=== PATIENT | female | born 1940 | race Hispanic/Latino ===

== ENCOUNTER 2022-04-28 06:20 | Day surgery (SDC) | payer MEDICARE ==
[2022-04-28] MEDS ORDERED: ASPIRIN EC 325 MG TAB PO NR (06:53)
[2022-04-28] MEDS ORDERED: SODIUM CHLORIDE 0.9% 500 ML 500 ML IV SCH (07:00)
[2022-04-28 07:13] LABS: Basophils # (Auto) 0.1 K/mm3 (0.0-0.1); Basophils % (Auto) 1.5 % (0.0-1.8); Eosinophils % (Auto) 0.3 % (0.0-4.3); Hematocrit 41.3 % (30.3-42.9); Hemoglobin 13.8 gm/dl (10.1-14.3); Lymphocytes # (Auto) 1.8 K/mm3 (1.2-5.4); Lymphocytes % (Auto) 31.7 % (13.4-35.0); Mean Corpuscular HGB Conc 33 % (30-34); Mean Corpuscular Volume 88 fl (79-97); Monocytes # (Auto) 0.6 K/mm3 (0.0-0.8); Monocytes % (Auto) 10.6 % (0.0-7.3); Platelet Count 203 K/mm3 (140-440); Red Blood Count 4.72 M/mm3 (3.65-5.03); Red Cell Distribution Width 14.5 % (13.2-15.2)
[2022-04-28 07:22] LABS: INR 0.92 (0.87-1.13); Partial Thromboplastin Time 28.8 Sec. (24.2-36.6)
[2022-04-28 07:23] LABS: Blood Urea Nitrogen 18 mg/dL (7-17); Calcium 9.8 mg/dL (8.4-10.2); Hemolysis Index 73
[2022-04-28 07:44] LABS: BUN/Creatinine Ratio 26
[2022-04-28] MEDS ORDERED: NITROGLYCERIN SYRINGE 0 ML ONE (08:04)
[2022-04-28] MEDS: fentaNYL 100 MCG/2 ML INJ ONE ×2 (08:41→08:49)
[2022-04-28] MEDS: VERAPAMIL 5 MG/2 ML INJ ONE ×2 (08:42→08:58)
[2022-04-28] MEDS: LIDOCAINE (1%) 10 MG/1 ML VIAL 20 ML MDV ONE ×2 (08:42→08:55)
[2022-04-28] MEDS: MIDAZOLAM 2 MG/2 ML INJ ONE ×2 (08:42→08:50)
[2022-04-28] MEDS: HEPARIN 10,000 UNITS/10 ML VIAL ONE ×3 (08:43→09:08)
[2022-04-28] MEDS: HEPARIN/NS 5000 UNIT/500ML 1,000 ML IR ONE ×2 (08:43→08:55)
[2022-04-28] MEDS: SODIUM CHLORIDE 0.9% 500 ML 500 ML ONE ×2 (08:43→08:45)
[2022-04-28] MEDS ORDERED: HYDROcodone/ACETAMINOPHEN 5-325 MG TAB PO PRN (11:00)
[2022-04-28] MEDS ORDERED: traMADol 50 MG TAB PO PRN (11:00)
--- NOTE | 2022-04-28 13:29 | Short Stay Summary ---
Short Stay Documentation Date of service: 04/28/22 - History H&P: obtained from office - Allergies and Medications Current Medications: Allergies No Known Allergies Allergy (Unverified 04/28/22 06:52) Home Medications Medication Instructions Recorded Confirmed Last Taken Type ALPRAZolam [Xanax TAB] 0.5 mg PO BID 04/28/22 04/28/22 04/27/22 History 0.5mg Apixaban [Eliquis] 2.5 mg PO BID 04/28/22 04/28/22 04/25/22 History 2.5mg Irbesartan [Avapro] 75 mg PO DAILY 04/28/22 04/28/22 04/27/22 History 75 mg Lactulose 15 ml PO DAILY 04/28/22 04/28/22 04/27/22 History 15 ml Propafenone HCl [Propafenone HCl 225 mg PO BID 04/28/22 04/28/22 04/27/22 History ER] 225 mg Active Medications Hydrocodone Bitart/Acetaminophen (Hydrocodone/Acetaminophen 5-325 Mg Tab) 1 e ach PO Q4H PRN PRN Reason: Pain, Moderate (4-6) Sodium Chloride (Nacl 0.9% 500 Ml) 500 mls @ 50 mls/hr IV DIRECT ARCHIE Stop: 04/28/22 16:59 Last Admin: 04/28/22 08:20 Dose: 50 mls/hr Tramadol HCl (Tramadol 50 Mg Tab) 50 mg PO Q4H PRN PRN Reason: Pain, Mild (1-3) - Physical exam Integumentary: other (Dressing clean dry and intact with no signs of bleeding or hematoma) - Brief post op/procedure progress note Date of procedure: 04/28/22 Pre-op diagnosis: Cardiomyopathy Post-op diagnosis: same Procedure: Cardiac cath Anesthesia: local Estimated blood loss: minimal - Hospital course Hospital course: Patient presents today for cardiac cath. Patient tolerated procedure well with no complications. See cath report for full details. Patient to be discharged home and follow-up in the office as an outpatient. - Disposition Condition at discharge: Good Disposition: 01 HOME / SELF CARE / HOMELESS - Discharge Diagnoses (1) Cardiomyopathy Status: Acute (2) Hypertension Status: Acute Short Stay Discharge Plan Activity: advance as tolerated Diet: low fat, low cholesterol, low salt Wound: keep clean and dry, per your surgeon's advice Follow up with: LAURITA WITT MD [Primary Care Provider] - 7 Days BECK CHOW MD [Staff Physician] - 7 Days Forms: CardCath PCI D/C Instructions
[2022-04-28 14:10] VITALS: BP 171/85
--- NOTE | 2022-04-28 17:35 | Cardiac Catherization Report ---
DATE OF SERVICE: 04/28/2022 CARDIAC CATHETERIZATION AND CORONARY ANGIOGRAPHY REPORT INDICATIONS: The patient is an 82-year-old white female who used to live in [place], moved to this area with a history of longstanding essential hypertension and paroxysmal atrial fibrillation, on propafenone, was noted to have mild LV dysfunction, ejection fraction of 40% on echocardiogram with no evidence of ischemia on the nuclear imaging. However, because of low ejection fraction, she was scheduled for diagnostic cardiac catheterization to rule out any significant coronary artery disease. The patient's main complaint is feeling tired, mostly at rest and with no complaints of chest pain with her usual activities. However, she does get short of breath. The patient was explained of the procedure, potential complications, and alternatives of therapy available. The patient's Eliquis was held for the last 3 days. The patient is willing to proceed with coronary angiography. DESCRIPTION OF PROCEDURE: The patient was evaluated for moderate sedation and received 1 mg of Versed and 25 mg of fentanyl starting at 8:50 a.m. Subsequently, local anesthesia was given in the right wrist area and right radial artery puncture was made using 21-gauge arterial puncture needle. Using 5-Czech multipurpose catheter, angiograms of the left coronary artery, right coronary artery were obtained in multiple views, also left ventriculogram was performed in HUTSON projection using hand injection. The patient received 3000 units of intravenous heparin and 5 mg of intra-arterial verapamil after obtaining the arterial access. Following findings were noted. Aortic pressure 190/80. Left ventricular pressure 190/11. No gradient across the aortic valve. Estimated ejection fraction of 40-45%. Left ventriculogram done in HUTSON projection showed left ventricular size to be upper limits of normal with mild diffuse hypokinesis. Mitral regurgitation could not be evaluated because of limited amount of dye injected. Overall, left ventricular ejection fraction was felt to be mildly impaired in the range of 40-45%. End-diastolic pressure was measured to be 11, which is within normal limits. Coronary arteries showed diffuse calcifications, particularly around the entire dominant RCA and also in the left main and proximal LAD areas. Left coronary artery arises normally from left coronary cusp. The left main shows very smooth 30% lesion distally. Circumflex artery nondominant vessel, shows a smooth long 50% proximal segment. The rest of circumflex without significant disease. Left anterior descending artery, which curves around the apex is very tortuous. It gives rise to 2 medium sized diagonal branches proximally. First diagonal branch shows a long proximal lesion, approaching 50-60% with a very focal 75% lesion close to the ostium. Also in the mid diagonal area, there is an 80% focal area of stenosis. Second diagonal branch shows diffuse disease in the proximal one-third approaching 60-70%. This is a medium-sized vessel. LAD itself is very tortuous, particularly in the mid part. In the mid LAD, there is a 50-60% smooth lesion; however, this is in the region of two 90-degree angles. Rest of the distal LAD without significant disease. Proximal LAD shows mild diffuse disease. Right coronary artery shows an entire artery to be showing diffuse calcification. However, only mild luminal irregularities noted. Approaching 20-30%. This is a very large, dominant vessel. COLLATERALS: None. iFR measurement of mid LAD lesion: Considering borderline lesion in mid LAD,it was felt,it would be helpful to measure iFR of this lesion.Extra dose of heparin was given.5F MP diagnostic catheter was used to engage LCA.Pressure wire was set up in standard fashion.Attempt was made to cross mid LAD lesion multiple times with pressure wire.However,difficult to direct wire into distal LAD,entering side branch.This is because of two 90% angles around lesions.Considering difficulty with wiring,procedure was aborted and final angiograms did not show any complications from wire manipulation. FINAL IMPRESSION: Mild left ventricular dysfunction, borderline 50-60% distal mid left anterior descending lesion along with significant disease in 2 diagonal branches proximally. Considering the above angiographic anatomy and the patient is not having any anginal symptoms with a negative Lexiscan nuclear imaging, it was felt that the patient can be continued on aggressive risk factor modification and medical therapy. The patient is in sinus rhythm. We will restart her on Eliquis. Intervention of the above lesions can be attempted; however, technically going to be challenging, particularly proximal diagonal branch, which has ostial lesion in addition to mid lesion. Also, second diagonal branch, medium sized vessel has diffuse moderate disease. Findings were explained to the patient, she is agreeable with the plan. Procedure was uncomplicated. The patient's moderate sedation started at 8:50 a.m. and ended at 9:16 a.m. At the end of the procedure, the patient is communicating normally with no focal deficits. The patient will be monitored for next 3-4 hours and will be discharged home on present medical therapy. She will be restarted on Eliquis. TID: [id number] RECEIPT: [id number] BAUTISTA/CHELSI/NEHEMIAS/NARGIS MOJICA
--- NOTE | 2022-04-29 17:45 | Electrocardiograph Report ---
[facility] Test Date: 2022-04-28 Test Time: 07:55:06 Pat Name: DEREK MONTERO Department: Room: Gender: F Room Service Waiter/Waitress: JHONATHAN : 1940 Requested By: MIGUELINA DUVAL Order Number: [id number] Reading MD: Rubén Werner Measurements Intervals [place] Rate: 83 P: 14 WA: 142 QRS: -48 QRSD: 118 T: 50 QT: 389 QTc: 457 Interpretive Statements Sinus arrhythmia Left anterior fascicular block Left ventricular hypertrophy Anterior Q waves, possibly due to LVH No previous ECG available for comparison Electronically Signed On 04-29-2022 17:45:33 EDT by Rubén Werner
== END 2022-04-28 15:37 | disposition home or self-care (01) ==
LOC: CATHLABREC 06:20
PROVIDERS: ATTEND Internal Medicine
DX: I48.0 Paroxysmal atrial fibrillation (principal); I10 Essential (primary) hypertension; I42.0 Dilated cardiomyopathy; R06.09 Other forms of dyspnea; K21.9 Gastro-esophageal reflux disease without esophagitis; M19.90 Unspecified osteoarthritis, unspecified site; F41.9 Anxiety disorder, unspecified; Z79.899 Other long term (current) drug therapy; Z98.890 Other specified postprocedural states
CPT/HCPCS: 36415; 80048; 85025; 85610; 85730; 93005; 93458; 93571; 99156; 99157; C1769; C1894; J1644; J2250; J3010; J7040; J1815; Q9967